=== PATIENT | female | born 1945 | race Caucasian/White ===

== ENCOUNTER → 2016-12-31 | Outpatient (CLI) | payer MEDICARE, BC | END | disposition home or self-care (01) | LOC: PCVCCLINIC 16:30 | PROVIDERS: ATTEND Internal Medicine Cardiovascular Disease | DX: I25.10 Atherosclerotic heart disease of native coronary artery without angina pectoris (principal); E78.00 Pure hypercholesterolemia, unspecified; R09.89 Other specified symptoms and signs involving the circulatory and respiratory systems; R00.2 Palpitations; G14 Postpolio syndrome; Z79.899 Other long term (current) drug therapy | CPT/HCPCS: 93005; G0463 ==

== ENCOUNTER → 2019-06-16 | Outpatient (CLI) | payer MEDICARE, BC ==
--- NOTE | 2019-06-16 12:12 | PCVCIMAG ---
APPROVED REPORT Laterality: Bilateral Indications Bruit Doppler Spectral Velocity Analysis PSV / EDVPSV / EDV ECA (R) 83 / 14 cm/sECA (L) 74 / 12 cm/s dICA (R) 66 / 22 cm/sdICA (L) 57 / 19 cm/s [place] (R) 93 / 16 cm/smICA (L) 50 / 19 cm/s pICA (R) 65 / 18 cm/spICA (L) 58 / 15 cm/s Bulb (R) 75 / 22 cm/sBulb (L) 71 / 20 cm/s dCCA (R) 70 / 26 cm/sdCCA (L) 86 / 24 cm/s mCCA (R) 75 / 22 cm/smCCA (L) 90 / 25 cm/s Vert (R) 39 / 12 cm/sVert (L) 44 / 14 cm/s ICA/CCA 1.33 ICA/CCA 0.67 Findings The right carotid bulb has mild plaque. The right proximal internal carotid artery shows no significant stenosis. The right common carotid artery shows no significant stenosis. The right external carotid artery shows no significant stenosis. The left carotid bulb has mild calcified plaque. The left proximal internal carotid artery shows <40% stenosis. The left common carotid artery shows no significant stenosis. The left external carotid artery shows no significant stenosis. Conclusion 1. Right internal carotid artery plaquing without significant stenosis. 2. Left internal carotid artery stenosis (<40%). 3. Antegrade vertebral flow.
== END | disposition home or self-care (01) ==
LOC: PCVCIMAG 11:27
PROVIDERS: ATTEND Internal Medicine Cardiovascular Disease
DX: I65.23 Occlusion and stenosis of bilateral carotid arteries (principal); E07.9 Disorder of thyroid, unspecified; R94.31 Abnormal electrocardiogram [ECG] [EKG]; E78.00 Pure hypercholesterolemia, unspecified; I10 Essential (primary) hypertension; Z88.1 Allergy status to other antibiotic agents; Z88.8 Allergy status to other drugs, medicaments and biological substances; Z90.710 Acquired absence of both cervix and uterus; Z79.899 Other long term (current) drug therapy
CPT/HCPCS: 93005; 93880; G0463

== ENCOUNTER → 2019-07-08 | Outpatient (CLI) | payer MEDICARE, BC ==
[~2019-07-08] MED LIST: AMINOPHYLLINE 250 MG/10 ML VIAL. ONE; REGADENOSON 0.4 MG/5 ML DISP.SYRIN. IV ONE
--- NOTE | 2019-07-08 11:47 | PCVCIMAG ---
APPROVED REPORT Study performed: 07/08/2019 08:26:08 EXAM: Comprehensive 2D, Doppler, and color-flow Echocardiogram Patient Location: Echo lab Room #: 2Status: routine BSA: 1.35 HR: 63 bpmBP: 136/80 mmHg Rhythm: NSR Other Information Study Quality: Good Risk Factors: Cardiac Risk Factors: HTN, Hyperlipidemia Indications CAD Palpitations Fatigue Elevated coronary calcium score (700) 2D Dimensions IVSd: 6.77 (7-11mm)LVOT Diam: 20.00 (18-24mm) LVDd: 31.52 mm PWd: 6.22 (7-11mm)Ascending Ao: 32.36 (22-36mm) LVDs: 10.80 (25-40mm) Left Atrium: 26.23 (27-40mm) Aortic Root: 29.15 mm LV Single Plane 4CH: 72.69 % LV Single Plane 2CH: 74.44 % Biplane EF: 72.3 % Volumes Left Atrial Volume (Systole) Single Plane 4CH: 43.13 mLSingle Plane 2CH: 32.91 mL Biplane LA Volume: 40.00 mLLA ESV Index: 30.00 mL/m2 Aortic Valve AoV Peak Navin.: 1.05 m/s AO Peak Gr.: 4.37 mmHgLVOT Max P.06 mmHg LVOT Max V: 0.87 m/s KENNA Vmax: 2.63 cm2 Mitral Valve E/A Ratio: 1.3 MV Decel. Time: 132.86 ms MV E Max Navin.: 0.85 m/s MV A Navin.: 0.65 m/s TDI E/Lateral E': 17.00E/Medial E': 10.63 Medial E' Navin.: 0.08 m/s Lateral E' Navin.: 0.05 m/s Pulmonary Valve PV Peak Navin.: 0.70 m/sPV Peak Gr.: 1.98 mmHg Pulmonary Vein P Vein S: 0.40 m/sP Vein A: 0.29 m/s P Vein D: 0.44 m/sP Vein A Dur.: 159.2 msec P Vein S/D Ratio: 0.91 Tricuspid Valve TR Peak Navin.: 2.37 m/s TR Peak Gr.: 22.48 mmHg TV Vmax: 0.67 m/sPA Pressure: 30.00 mmHg Left Ventricle The left ventricle is normal size. There is normal LV segmental wall motion. There is normal left ventricular wall thickness. Left ventricular systolic function is borderline hyperdynamic. LVEF is >70%. Right Ventricle The right ventricle is normal size. The right ventricular systolic function is normal. Atria The left atrium size is normal. The right atrium size is normal. Aortic Valve Aortic valve is trileaflet. No aortic regurgitation is present. There is no aortic valvular stenosis. Mitral Valve The mitral valve is normal in structure. There is no mitral valve regurgitation noted. No evidence of mitral valve stenosis. Tricuspid Valve The tricuspid valve is normal in structure. There is no tricuspid valve regurgitation noted. Pulmonic Valve The pulmonary valve is normal in structure. There is no pulmonic valvular regurgitation. Great Vessels The aortic root is normal in size. IVC is normal in size and collapses >50% with inspiration. Pericardium Moderate to Severe circumferential pericardial effusion. Thickening of the [place] is seen. There is no pleural effusion. <Conclusion> The left ventricle is normal size. Left ventricular systolic function is borderline hyperdynamic. LVEF is >70%. The right ventricle is normal size. The left atrium size is normal. Aortic valve is trileaflet. There is no mitral valve regurgitation noted. There is no tricuspid valve regurgitation noted. The aortic root is normal in size. Moderate to Severe circumferential pericardial effusion. Thickening of the [place] is seen. There is no pleural effusion.
--- NOTE | 2019-07-08 16:48 | PCVCIMAG ---
APPROVED REPORT Imaging Protocol: Rest Tc-99m/Stress Tc-99m 1 day Study performed: 07/08/2019 09:21:19 Indication: Palpitations , CAD Patient Location: Out-Patient Stress Nurse: Ruby Guerra RN, Kaylynn Grimes RN NH Tech:SALMA AmaroMT Ht: 5 ft 2 in Wt: 88 lbs BSA: 1.35 m2 HR: 66 bpm BP: 147/74 mmHg BMI: 16.0 Rhythm: Normal Sinus Rhythm, Anterior infarct pattern Medical History Medical History: Hyperlipidemia, HTN, Diabetes, CVD, CAD, High Ca Score Medications: Bystolic, Statin (Livalo) Allergies: Sulfa, Zinc Cardiac Risk Factors: Age Pretest Chest Pain Characteristics: No chest pain Physical Disabilities: Uses a cane Meds Held (24 hrs): Bystolic Resting Data Rest SPECT myocardial perfusion imaging was performed in supine position 45 minutes following the intravenous injection of 10.3 mCi of Tc-99m Sestamibi. Time of rest injection: 0930 Date: 07/08/2019 Administration Route: IV Administration Site: Left AC Pharmacologic Stress Pharmacologic stress test was performed by injecting Regadenoson 0.4 mg IV push over 10-15 seconds immediately followed by the intravenous injection of 34.3 mCi of Tc-99m Sestamibi. Time of stress injection: 1100 Date: 07/08/2019 Administration Route: IV Administration Site: Left AC Gated Stress SPECT was performed 45 minutes after stress injection. The images were gated to evaluate regional wall motion and calculate left ventricular ejection fraction. Stress Test Details Stress Test: Pharmacologic stress testing performed using 0.4 mg of regadenoson per 5 mL given IV over 10 seconds. Reason for pharmacologic stress test: physical limitation, unsteady gait. Reversal agent Aminophyline 100 mg, given intravenously for headache & nausea. HRMax Heart Rate (APMHR): 149 bpm Resting HR: 66 bpmTarget HR (85% APMHR): 126 bpm Max HR Achieved: 93 bpm % of APMHR: 62 Recovery HR: 87 bpm BP Resting BP: 147/74 mmHg Max BP: 155/88 mmHg Recovery BP: 138/75 mmHg ECG Resting ECG: Normal Sinus Rhythm, Anterior infarct pattern Stress ECG: Sinus Tachycardia Recovery ECG: Sinus Rhythm Clinical Reason for Termination: Completed protocol Stress Symptoms: Abdominal discomfort, Nausea, Lightheaded, Headache Symptoms resolved during recovery with aminophylline. Stress ECG Conclusion ECG: Non-ischemic Study Quality Study: Good Study Data Post stress, the left ventricular ejection was 93%.. SSS: 0 SRS: 0 SDS: 0 TID = 0.60. Perfusion No evidence of stress induced ischemia or prior myocardial infarction. Wall Motion Normal left ventricular size and function with no regional wall motion abnormalities. Nuclear Conclusion No evidence of stress induced ischemia or prior myocardial infarction. Normal left ventricular size and function with no regional wall motion abnormalities. Post stress, the left ventricular ejection was 93%. No prior study available for comparison. Interpreted by: Marty Sutherland MD Electronically Approved: 07/08/2019 15:54:05 <Conclusion> ECG: Non-ischemic
== END | disposition home or self-care (01) ==
LOC: PCVCIMAG 08:38
PROVIDERS: ATTEND Internal Medicine Cardiovascular Disease
DX: I10 Essential (primary) hypertension (principal); E78.00 Pure hypercholesterolemia, unspecified; R00.2 Palpitations; R93.1 Abnormal findings on diagnostic imaging of heart and coronary circulation
CPT/HCPCS: 78452; 93017; 93306; A9500; J0280; J2785